=== PATIENT | female | born 1970 | race Caucasian/White ===

== ENCOUNTER 2018-03-28 12:51 | Emergency (ER) | payer OTHER ==
[2018-03-28 13:24] LABS: URINE PH (Dip) POC 8.5 (5.0-8.5)
[2018-03-28 13:24] LABS: URINE BLOOD (Dip) POC Negative (NEGATIVE); URINE GLUCOSE (Dip) POC Negative (NEGATIVE); URINE KETONES (Dip) POC Negative (NEGATIVE); URINE LEUKOCYTE EST (Dip) POC 1+ (NEGATIVE); URINE NITRITE (Dip) POC Negative (NEGATIVE); URINE TOTAL PROTEIN POC Negative (NEGATIVE)
== END 2018-03-28 13:54 | disposition home or self-care (01) ==
LOC: FTE 12:51
DX: R05 Cough (principal); N30.00 Acute cystitis without hematuria
CPT/HCPCS: 81003; 99283

== ENCOUNTER 2018-05-15 17:41 | Emergency (ER) | payer SELFPAY, OTHER | END 2018-05-15 23:32 | disposition left against medical advice (07) | LOC: FTE 17:41 | DX: Z53.21 Procedure and treatment not carried out due to patient leaving prior to being seen by health care provider (principal) ==

== ENCOUNTER 2018-05-16 14:19 | Emergency (ER) | payer OTHER | END 2018-05-16 15:45 | disposition home or self-care (01) | LOC: FTE 14:19 | DX: M54.2 Cervicalgia (principal) | CPT/HCPCS: 99283; Z7502 ==

== ENCOUNTER 2018-07-13 14:43 | Emergency (ER) | payer OTHER | END 2018-07-14 15:44 | disposition home or self-care (01) | LOC: E/R 07-14 15:44 | DX: J06.9 Acute upper respiratory infection, unspecified (principal); M54.6 Pain in thoracic spine | CPT/HCPCS: 99283; Z7502 ==